=== PATIENT | male | born 1985 ===

== ENCOUNTER 2018-04-29 12:22 | Emergency (ER) | payer OTHER ==
[2018-04-29 14:18] LABS: Protime INR 3.38
[2018-04-29 14:20] LABS: ALT/SGPT 39 U/L (12-78); AST/SGOT 26 U/L (15-37); Albumin 2.9 g/dL (3.4-5.0); Alkaline Phosphatase 107 U/L (45-117); BUN Blood Urea Nitrogen 10 mg/dL (7-18); Bicarbonate 30 mmol/L (21-32); Bilirubin Direct < 0.1 mg/dL (0-0.2); Bilirubin Total 0.2 mg/dL (0.2-1.0); Glucose Level 90 mg/dL (74-106); Lipase 56 U/L (73-393); Potassium 3.7 mmol/L (3.5-5.1); Sodium Level 143 mmol/L (136-145)
--- NOTE | 2018-04-29 14:33 | RAD REPORT ---
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 Abdominal pain COMPARISON: None. TECHNIQUE: CT angiogram of the abdomen and pelvis performed. 100 cc Isovue 370 administered intraven ously. 3D MIPS reconstruction performed All CT scans are performed using dose optimization technique as appropriate and may include automated exposure control or mA/KV adjustment according to patient size. FINDINGS: The abdominal aorta, the right and left common iliac, right and left internal iliac, right and left external iliac, right and left common femoral and right and left proximal superficial femor al arteries are normal caliber. A dissection is not noted. An aneurysm is not seen. Celiac, SMA and MANJEET are normal caliber. A large ventral hernia contains liver, stomach, large and small bowel. No extravasation of contrast is visualized within the hernia. The bowel wall thickening appears thomas l. An aneurysm/AV fistula is not seen. A filter is present within the inferior vena cava. Old pelvic fractures noted. Suprapubic catheter in place. Gallstones IMPRESSION: Unremarkable vascular CT scan of the abdomen and pelvis
[2018-04-29 14:42] LABS: Absolute Lymphocytes (CBC) 1.7 K/uL (0.7-4.9); Absolute Monocytes 0.4 K/uL (0.1-1.3); Absolute Neutrophil 8.8 K/uL (1.8-8.0); Basophils % 0.9 % (0-1.3); Eosinophils % 3.1 % (0-4.4); Hematocrit 28.7 % (39.6-49.0); MPV 7.9 fL (7.6-11.3); Monocytes % 3.1 % (3.3-12.3); RBC Red Blood Cell Count 3.34 M/uL (4.33-5.43)
[2018-04-29] MEDS ORDERED: NA CHLORIDE 0.9% 1,000 ML ONE (14:44)
--- NOTE | 2018-04-29 15:15 | ER ---
Nurse's Notes [facility] Name: Peter Mae Age: 33 yrs Sex: Male : 1985 Arrival Date: 04/29/2018 Time: 12:39 Bed Treatment Private MD: Diagnosis: Fistula of intestine Presentation: 04/29 12:40 Presenting complaint: EMS states: Pt sent from detention for bleeding from external ph fistula, hx of traumatic injury w/ pelvic fractures and partial removal of intestines, currently on blood thinners for DVT, fistula began bleeding this morning, bleeding currently controlled w/ dressing in place, pt denies dizziness. Transition of care: patient was not received from another setting of care. Onset of symptoms was April 29, 2018. Risk Assessment: Do you want to hurt yourself or someone else? Patient reports no desire to harm self or others. Initial Sepsis Screen: Does the patient meet any 2 criteria? No. Patient's initial sepsis screen is negative. Does the patient have a suspected source of infection? No. Patient's initial sepsis screen is negative. Care prior to arrival: IV initiated. 18 GA, in the right EJ. 12:40 Method Of Arrival: EMS: [facility] 12:40 Acuity: MERVIN 3 ph Historical: - Allergies: 12:52 No Known Allergies; ph - Home Meds: 12:52 acetaminophen-codeine 300-30 mg Oral tab 2 tabs twice a day [Active]; cyanocobalamin ph (vitamin B-12) 1,000 mcg/mL injection soln 1 mL once moly [Active]; fluoxetine 20 mg Oral cap 1 cap once daily [Active]; oxybutynin chloride 5 mg Oral tab 1 tab 2 times per day [Active]; warfarin 2.5 mg Oral tab 2 tabs once daily [Active]; omeprazole 20 mg Oral cpDR 1 cap once daily [Active]; simethicone 80 mg Oral chew three times a day [Active]; - PMHx: 12:52 DVT; Hernia; Depression; ph - PSHx: 12:52 Bowel resection; Suprapubic catheter; ph - Immunization history:: Adult Immunizations up to date. - Social history:: Smoking status: Patient/guardian denies using tobacco, Patient/guardian denies using alcohol, street drugs, The patient lives with family. - Ebola Screening: : No symptoms or risks identified at this time. - Family history:: not pertinent. Screenin:07 Abuse screen: Denies threats or abuse. Denies injuries from another. Nutritional ph screening: No deficits noted. Tuberculosis screening: No symptoms or risk factors identified. Fall Risk None identified. Assessment: 13:00 General: Appears in no apparent distress. comfortable, slender, Behavior is calm, ph cooperative, appropriate for age. Pain: Denies pain. Neuro: Level of Consciousness is awake, alert, obeys commands, Oriented to person, place, time, situation, Denies weakness dizziness. Cardiovascular: Capillary refill < 3 seconds in bilateral fingers Patient's skin is warm and dry. Respiratory: Airway is patent Respiratory effort is even, unlabored, Respiratory pattern is regular, symmetrical. GI: Abdomen is round scar tissue and small fistula noted to lower abdomen, no bleeding noted at this time. : suprapubic catheter in place to gravity drainage. Derm: Skin is healthy with good turgor, Skin is pink, warm \T\ dry. Musculoskeletal: Circulation, motion, and sensation intact. Range of motion: intact in all extremities. 13:56 Reassessment: Patient appears in no apparent distress at this time. Patient and/or ph family updated on plan of care and expected duration. Pain level reassessed. Patient is alert, oriented x 3, equal unlabored respirations, skin warm/dry/pink. Pt taken for CT scan via stretcher. 16:41 Reassessment: Patient discharge pending a ride back. aj1 Vital Signs: 12:45 BP 106 / 78; Pulse 72; Resp 16; Temp 97.9; Pulse Ox 100% on R/A; Weight 78.02 kg; ph Height 5 ft. 7 in. (170.18 cm); Pain 4/10; 15:08 BP 101 / 67; Pulse 74; Resp 16; Pulse Ox 100% on R/A; ph 12:45 Body Mass Index 26.94 (78.02 kg, 170.18 cm) ph ED Course: 12:39 Patient arrived in ED. ph 12:41 Dakotah Recinos MD is Attending Physician. ma2 12:45 Triage completed. ph 13:07 Arm band placed on Patient placed in an exam room. ph 13:30 Patient has correct armband on for positive identification. Bed in low position. Call ph light in reach. Side rails up X 1. Pulse ox on. NIBP on. Warm blanket given. 13:42 Claudia Greer, RN is Primary Nurse. ph 14:02 CT completed. Patient tolerated procedure well. Patient moved to CT via stretcher. Patient moved back from CT. 14:07 CT Abdomen - Angio In Process Unspecified. EDMS 14:07 Pelvis Angio In Process Unspecified. EDMS 16:41 Report received from DORENE Borden. aj1 16:58 No provider procedures requiring assistance completed. IV discontinued, intact, ph bleeding controlled, No redness/swelling at site. Pressure dressing applied. Administered Medications: 14:30 Drug: NS 0.9% 1000 ml Route: IV; Rate: 1 bolus; Site: right jugular; ph 15:45 Follow up: Response: No adverse reaction; IV Status: Completed infusion ph Outcome: 15:14 Discharge ordered by MD. parikh 17:00 Discharged to [employer] iw 17:00 Condition: good 17:00 Discharge instructions given to patient, Instructed on discharge instructions, follow up and referral plans. Demonstrated understanding of instructions, follow-up care. 17:00 Patient left the ED. iw Signatures: Dispatcher [employer] Chastity Sanders RN RN ajSophia Torres Irene, RN RN iw Hall, Patricia, DORENE RN Dakotah Recinos MD MD ma2
--- NOTE | 2018-04-29 15:15 | EDPHYS ---
Physician Documentation [facility] Name: Peter Mae Age: 33 yrs Sex: Male : 1985 Arrival Date: 04/29/2018 Time: 12:39 Bed Treatment Private MD: ED Physician Dakotah Recinos HPI: 04/29 13:22 This 33 yrs old Male presents to ER via EMS with complaints of Wound Check, Abdominal ma2 Problem. 13:22 Patient presents to ED for recheck of: ac fistula that was ozing blood now stopped. The ma2 affected area is on the abdomen. Progress: The patient reports decreased. The patient has not experienced similar symptoms in the past. Historical: - Allergies: 12:52 No Known Allergies; ph - Home Meds: 12:52 acetaminophen-codeine 300-30 mg Oral tab 2 tabs twice a day [Active]; cyanocobalamin ph (vitamin B-12) 1,000 mcg/mL injection soln 1 mL once moly [Active]; fluoxetine 20 mg Oral cap 1 cap once daily [Active]; oxybutynin chloride 5 mg Oral tab 1 tab 2 times per day [Active]; warfarin 2.5 mg Oral tab 2 tabs once daily [Active]; omeprazole 20 mg Oral cpDR 1 cap once daily [Active]; simethicone 80 mg Oral chew three times a day [Active]; - PMHx: 12:52 DVT; Hernia; Depression; ph - PSHx: 12:52 Bowel resection; Suprapubic catheter; ph - Immunization history:: Adult Immunizations up to date. - Social history:: Smoking status: Patient/guardian denies using tobacco, Patient/guardian denies using alcohol, street drugs, The patient lives with family. - Ebola Screening: : No symptoms or risks identified at this time. - Family history:: not pertinent. ROS: 13:22 Skin: Positive for lesions, Negative for discoloration, ecchymosis, hematoma, acute ma2 changes. 13:22 All other systems are negative. Exam: 13:22 Constitutional: This is a well developed, well nourished patient who is awake, alert, ma2 and in no acute distress. Head/Face: Normocephalic, atraumatic. Neck: Trachea midline, no thyromegaly or masses palpated, and no cervical lymphadenopathy. Supple, full range of motion without nuchal rigidity, or vertebral point tenderness. No Meningismus. Chest/axilla: Normal chest wall appearance and motion. Nontender with no deformity. No lesions are appreciated. Cardiovascular: Regular rate and rhythm with a normal S1 and S2. No gallops, murmurs, or rubs. Normal PMI, no JVD. No pulse deficits. Respiratory: Lungs have equal breath sounds bilaterally, clear to auscultation and percussion. No rales, rhonchi or wheezes noted. No increased work of breathing, no retractions or nasal flaring. 13:22 Back: No spinal tenderness. No costovertebral tenderness. Full range of motion. MS/ Extremity: Pulses equal, no cyanosis. Neurovascular intact. Full, normal range of motion. Neuro: Awake and alert, GCS 15, oriented to person, place, time, and situation. Cranial nerves II-XII grossly intact. Motor strength 5/5 in all extremities. Sensory grossly intact. Cerebellar exam normal. Normal gait. 13:22 Abdomen/GI: Inspection: scar(s), ac fistula not bleeding , Palpation: soft, nontender, Hernia: not appreciated. Vital Signs: 12:45 BP 106 / 78; Pulse 72; Resp 16; Temp 97.9; Pulse Ox 100% on R/A; Weight 78.02 kg; ph Height 5 ft. 7 in. (170.18 cm); Pain 4/10; 15:08 BP 101 / 67; Pulse 74; Resp 16; Pulse Ox 100% on R/A; ph 12:45 Body Mass Index 26.94 (78.02 kg, 170.18 cm) ph MDM: 12:41 Patient medically screened. [facility] 13:22 Differential diagnosis: cellulitis, ?a-e fistula. [facility] 15:13 Data reviewed: vital signs, nurses notes. Counseling: I had a detailed discussion with [facility] the patient and/or guardian regarding: the historical points, exam findings, and any diagnostic results supporting the discharge/admit diagnosis, the presence of at least one elevated blood pressure reading (>120/80) during this emergency department visit. Response to treatment: the patient's symptoms have markedly improved after treatment, the patient's symptoms have resolved after treatment. 04/29 13:00 Order name: Basic Metabolic Panel; Complete Time: 14:49 [facility] 04/29 13:00 Order name: CBC with Diff; Complete Time: 15:01 [facility] 04/29 13:00 Order name: Creatinine for Radiology; Complete Time: 14:49 [facility] 04/29 13:00 Order name: Hepatic Function; Complete Time: 14:49 [facility] 04/29 13:00 Order name: Lipase; Complete Time: 14:49 [facility] 04/29 13:00 Order name: PT-INR; Complete Time: 14:49 [facility] 04/29 13:00 Order name: IV Saline Lock; Complete Time: 13:57 [facility] 04/29 13:00 Order name: Labs collected and sent; Complete Time: 14:37 [facility] 04/29 13:00 Order name: CT Abdomen - Angio; Complete Time: 14:49 [facility] 04/29 14:00 Order name: Pelvis Angio; Complete Time: 15:01 EDMS Administered Medications: 14:30 Drug: NS 0.9% 1000 ml Route: IV; Rate: 1 bolus; Site: right jugular; ph 15:45 Follow up: Response: No adverse reaction; IV Status: Completed infusion ph Disposition: 04/29/18 15:14 Discharged to Home. Impression: Fistula of intestine. - Condition is Stable. - Medication Reconciliation Form, Thank You Letter, Antibiotic Education, Prescription Opioid Use form. - Follow up: Private Physician; When: Tomorrow; Reason: Continuance of care. - Notes: stop taking warfarine for 2 days Signatures: Dispatcher [employer] EDSuha León RN RN Claudia Greer RN RN Dakotah Recinos MD MD ma2 Corrections: (The following items were deleted from the chart) 17:00 15:14 04/29/2018 15:14 Discharged to Home. Impression: Fistula of intestine. Condition iw is Stable. Forms are Medication Reconciliation Form, Thank You Letter, Antibiotic Education, Prescription Opioid Use. Follow up: Private Physician; When: Tomorrow; Reason: Continuance of care. ma2
== END 2018-04-29 17:00 | disposition home or self-care (01) ==
LOC: ER 12:22
DX: K63.2 Fistula of intestine (principal); F32.9 Major depressive disorder, single episode, unspecified; Z79.01 Long term (current) use of anticoagulants; Z86.718 Personal history of other venous thrombosis and embolism
CPT/HCPCS: 36415; 72191; 74175; 80048; 80076; 83690; 85025; 85610; 96360; 99284; J7030; Q9967